=== PATIENT | female | born 1990 | race Caucasian/White ===

== ENCOUNTER → 2017-09-14 14:25 | Outpatient (CLI) | payer MEDICAID, SELFPAY ==
[2017-09-14 17:11] LABS: Chlamydia Trachomatis by PCR Negative (Negative); Neisserai gonorrhoeae by PCR Negative (Negative); Probe Check PASS; Sample Adequacy Control PASS; Specimen Processing Control PASS
== END ==
PROVIDERS: Visit Provider Obstetrics & Gynecology
DX: Z11.3 Encounter for screening for infections with a predominantly sexual mode of transmission (principal); Z32.01 Encounter for pregnancy test, result positive
CPT/HCPCS: 87491; 87591

== ENCOUNTER 2017-09-15 21:11 | Emergency (ER) | payer MEDICAID, SELFPAY ==
[2017-09-15 21:13] VITALS: BP 134/109; PULSE 78; RESP 18; TEMP 36.7; O2SAT 99; BMI 51.7
--- NOTE | 2017-09-15 22:29 | ED.VISSUMM ---
- ER Visit Summary Date of Service: 09/15/17 Chief Complaint: Sore throat History of Present Illness: The patient is a 27 F who has a sore throat that began today. She notes a cough and runny nose. No fevers. She is 6 weeks . Vomiting or diarrhea. No urinary symptoms. No rash. No headache. No neck pain. She does state that she has been of a hoarse voice today. Physical Examination: Afebrile vital signs are stable Gen: Well-nourished well-developed Head: Normocephalic atraumatic Eyes: Perrl EOMI ENT: TMs clear positive rhinorrhea moist mucous membranes I do not see any pharyngeal erythema. There is no tonsillar or retropharyngeal abscess. She seen her secretions normally. No exudate. Neck: Supple slight anterior lymphadenopathy no JVD nontender CVS: Regular rate rhythm no murmurs normal S1-S2 Respiratory: No distress clear to auscultation bilaterally chest nontender Abdomen: Soft nontender nondistended normal bowel sounds no masses Back: Nontender Extremity: Nontender no edema Skin: Normal color no rash Neuro: alert orientated ?3 CN II-XII intact normal strength sensation reflexes gait cerebellar Psych: Normal affect normal mood Emergency Department Course and Treatment: She will do supportive care at home. Return if worsening. Impression: 1. Viral pharyngitis This note was generated with [employer] dictation software. It may contain incorrect words, spelling, and punctuation that were not noted in review of the chart prior to signing ED Disposition - Plan for ED Patient: Disposition: Home or Assisted Living Chief Complaint: Sore Throat Instructions: ED Pharyngitis Viral Referrals: Care Physician,No Primary [Primary Care Provider] - Mae Ballard MD [STAFF PHYSICIAN] - As Needed
[2017-09-15 22:34] VITALS: RESP 18
== END 2017-09-15 22:34 | disposition home or self-care (01) ==
PROVIDERS: Emergency Provider Emergency Medicine
DX: O26.891 Other specified pregnancy related conditions, first trimester (principal); J02.9 Acute pharyngitis, unspecified; Z3A.01 Less than 8 weeks gestation of pregnancy
CPT/HCPCS: 99282

== ENCOUNTER → 2017-09-28 11:22 | Outpatient (CLI) | payer MEDICAID, SELFPAY ==
[2017-09-28 13:50] LABS: Absolute Lymphocyte Count 1.59 X10^3/ul (0.83-4.51); Basophil# 0.03 X10^3/uL; Basophil% 0.4 % (0-1); Color, Urine Yellow (Yellow); Eosinophil# 0.03 X10^3/uL; Eosinophils% 0.4 % (0-5); Glucose, Dipstick Normal (Normal); Hematocrit 34.6 % (37-47); Ketone-Dipstick Negative (Negative); Leukocyte Esterase-Dipstick 25 /ul (Negative); Lymphocyte # 1.59 X10^3/ul (4.0); Lymphocyte % 22.4 % (19-41); Mean Corp Hgb Conc 31.8 g/gl (32-36); Mean Corpuscular Hgb 27.3 pg (27.0-32.0); Mean Corpuscular Volume 85.9 fL (81-99); Mean Platelet Vol. 10.6 fl (6.2-12.0); Monocyte# 0.38 X10^3/uL; Monocyte% 5.4 % (0-10); Neutrophil # 5.04 X10^3/uL (2.7-7.7); Neutrophil % 71.1 % (47-70); Nitrite-Dipstick Negative (Negative); Occult Blood-Urine Negative /ul (Negative); Platelet Count 209 K/mm3 (150-450); Protein-Dipstick Negative (Negative); RBC Distribution Width CV 14.4 % (11.6-14.6); Red Blood Count 4.03 M/mm3 (4.2-5.4); Urine Bilirubin Dipstick Negative (Negative); Urine Clarity Clear (Clear); Urine Urobilinogen Normal (Normal); White Blood Count 7.1 K/mm3 (4.4-11.0)
[2017-09-28 13:51] LABS: COTININE Drug Screen Negative (<200 ng/mL); POSITIVE COUNT NO; POSITIVE DIFFERENTIAL NO; POSITIVE MORPHOLOGY NO
[2017-09-28 13:53] LABS: Amphetamine Urine VISTA NEGATIVE (<1000 ng/mL); Barbiturate Urine VISTA NEGATIVE (< 200 ng/mL); Benzodiazepine Urine VISTA NEGATIVE (< 200 ng/mL); Cocaine Urine VISTA NEGATIVE (< 300 ng/mL); Ecstacy Urine VISTA NEGATIVE (< 500 ng/mL); Methadone Urine VISTA NEGATIVE (< 300 ng/mL); PCP Urine VISTA NEGATIVE (< 25 ng/mL); THC Urine VISTA NEGATIVE (< 50 ng/mL); Vista UDS pH Range 6
[2017-09-28 14:10] LABS: Thyroid Stim Hormone (TSH) 1.85 uIU/mL (0.358-3.74)
[2017-09-29 09:44] LABS: HIV - WCH Non-Reactive (Nonreactive); Rubella IgG 147.7 IU/mL
[2017-09-29 14:34] LABS: HEPATITIS B SURFACE AG Negative (Negative); Hep C Antibodies <0.1 s/co ratio (0.0-0.9)
[2017-10-01 03:15] LABS: Prenatal RPR NONREACTIVE (NONREACTIVE)
== END ==
PROVIDERS: Visit Provider Obstetrics & Gynecology
DX: Z34.81 Encounter for supervision of other normal pregnancy, first trimester (principal)
CPT/HCPCS: 36415; 80307; 81002; 84443; 85025; 86703; 86762; 86803; 87340

== ENCOUNTER 2017-10-27 19:36 | Emergency (ER) | payer MEDICAID, SELFPAY ==
[2017-10-27 19:38] VITALS: BP 134/70; PULSE 85; RESP 16; TEMP 36.9; O2SAT 99; BMI 49.8
--- NOTE | 2017-10-27 20:25 | ED.RN ---
PT STATES THIS IS SIMILAR TO PREVIOUS MIGRAINES. TOK TYLENOL AT HOME. EMESIS X2 SINCE 1800. REPORTS N/T IN HANDS, TREMORS NOTED. BLURRED VISION. DENIES AURA.
[2017-10-27] MEDS: Metoclopramide 10 MG/2 ML Vial IV (21:31)
[2017-10-27] MEDS: DiphenhydrAMINE 50 MG/ML Syringe 25 MG IV (21:31)
[2017-10-27] MEDS: 0.9% Normal Saline 1,000 ML 999 ML IV (21:31)
[2017-10-27 23:04] VITALS: BP 115/42; PULSE 71; RESP 18; O2SAT 100
--- NOTE | 2017-10-27 23:15 | ED.VISSUMM ---
- ER Visit Summary Date of Service: 10/27/17 Chief Complaint: Migraine History of Present Illness: The patient is a 27 F who states that she is about 3 months (). She sees Dr. Alexander. She states for the past 3-1/2 hour she has had a headache. States it felt very sudden onset left frontal. It is to the right side of her body had numbness and tingling and felt weak. She states that she also has blurred vision. Patient has a history of migraines and states that her symptoms are not uncommon for her. She currently is not on any migraine medications. Physical Examination: Afebrile 134/76 Gen: Well-nourished well-developed BMI of 50 Head: Normocephalic atraumatic Eyes: Perrl EOMI ENT: TMs clear no rhinorrhea moist mucous membranes Neck: Supple no lymphadenopathy no JVD nontender CVS: Regular rate rhythm no murmurs normal S1-S2 Respiratory: No distress clear to auscultation bilaterally chest nontender Abdomen: Soft nontender nondistended normal bowel sounds no masses Back: Nontender Extremity: Nontender no edema Skin: Normal color no rash Neuro: alert orientated ?3 CN II-XII intact normal strength sensation reflexes gait cerebellar Psych: Normal affect normal mood Emergency Department Course and Treatment: Patient received IV fluids Benadryl and Reglan. Her symptoms have improved. She will be given a dose of Solu-Medrol. I will write for her to have Reglan at home for home use for her migraines. We talked about her blood pressure. She will continue to monitor it with her doctor. Impression: 1. Migraine headache 2. Second trimester 3. Elevated blood pressure This note was generated with [employer] dictation software. It may contain incorrect words, spelling, and punctuation that were not noted in review of the chart prior to signing ED Disposition - Plan for ED Patient: Disposition: Home or Assisted Living Chief Complaint: Headache Instructions: ED Headache Migraine Prescriptions: Metoclopramide [Reglan] 10 mg PO 4X/DAY PRN #20 tab PRN Reason: Migraine Symptoms Referrals: Matthew Alexander MD [STAFF PHYSICIAN] - As soon as possible
[2017-10-27] MEDS: MethylPREDNISolone 125 MG/2 ML Vial IV (23:28)
== END 2017-10-27 23:34 | disposition home or self-care (01) ==
PROVIDERS: Emergency Provider Emergency Medicine
DX: O26.891 Other specified pregnancy related conditions, first trimester (principal); G43.909 Migraine, unspecified, not intractable, without status migrainosus; R03.0 Elevated blood-pressure reading, without diagnosis of hypertension; Z87.891 Personal history of nicotine dependence; Z3A.00 Weeks of gestation of pregnancy not specified
CPT/HCPCS: 96361; 96374; 96375; 99285; J7030; A4216

== ENCOUNTER → 2018-02-09 13:35 | Outpatient (CLI) | payer MEDICAID, SELFPAY ==
[2018-02-09 16:01] LABS: Hemoglobin 10.7 g/dl (12.0-15.0); Mean Corp Hgb Conc 32.4 g/gl (32-36); Mean Corpuscular Hgb 30.1 pg (27.0-32.0); Mean Corpuscular Volume 92.7 fL (81-99); Platelet Count 252 K/mm3 (150-450); RBC Distribution Width CV 12.6 % (11.6-14.6); RBC Distribution Width SD 43.1 fl (35.1-43.9); Red Blood Count 3.56 M/mm3 (4.2-5.4); Scan Indicated on CBC? Y/N NO; White Blood Count 10.1 K/mm3 (4.4-11.0)
[2018-02-09 16:03] LABS: Glucose Challenge Gest 1H 50g 133 mg/dL (70-140)
== END ==
PROVIDERS: Visit Provider Obstetrics & Gynecology
DX: Z34.82 Encounter for supervision of other normal pregnancy, second trimester (principal)
CPT/HCPCS: 36415; 82950; 85027

== ENCOUNTER 2018-03-23 11:22 | Outpatient (CLI) | payer MEDICAID, SELFPAY ==
[2018-03-23 11:29] VITALS: BMI 49.8
[2018-03-23] MEDS: Betamethasone/Betamethasone 30 MG/5 ML Vial 12 MG IM (11:36)
--- NOTE | 2018-03-26 08:31 | OB.TRI.NOTE ---
History of Present Illness Date of Service: 03/24/18 Was patient seen by the physician?: Yes Reason For Visit: CELESTONE SHOT Date of Service: 03/24/18 Final JACK: 05/05/18 Gestational age: 34 Weeks and 0 Days History of Present Illness: 28 yo female with h/o 37 wk stillbirth. Planned Celestone injections today and tomorrow in preparation for possible delivery Allergies amoxicillin [Amoxicillin] Allergy (Verified 03/23/18 11:40) Hives Impression/Plan 34 wk with h/o 37 wk stillbirth. Planned Celestone injection prior to potential . Dose today and repeat in 24 hrs for two dose Continue office appts, NSTs as planned.
== END 2018-03-23 11:40 | disposition home or self-care (01) ==
LOC: WPOUT 11:24 → WP 11:24
PROVIDERS: Visit Provider Obstetrics & Gynecology
DX: O09.293 Supervision of pregnancy with other poor reproductive or obstetric history, third trimester (principal); Z3A.34 34 weeks gestation of pregnancy
CPT/HCPCS: 96372; 99218; G0378; J0702

== ENCOUNTER 2018-03-24 11:45 | Outpatient (CLI) | payer MEDICAID, SELFPAY ==
[2018-03-24 12:09] VITALS: BMI 49.8
[2018-03-24] MEDS: Betamethasone/Betamethasone 30 MG/5 ML Vial 12 MG IM (12:34)
--- NOTE | 2018-04-04 07:50 | OB.TRI.NOTE ---
History of Present Illness Reason For Visit: CELESTONE SHOT History of Present Illness: presents for second Celestone injection Potential for early delivery Allergies amoxicillin [Amoxicillin] Allergy (Verified 03/23/18 11:40) Hives Impression/Plan 34+ wk for Celestone injection. Potential for delivery.
== END 2018-03-24 12:40 | disposition home or self-care (01) ==
LOC: WPOUT 12:00 → WP 12:01
PROVIDERS: Visit Provider Obstetrics & Gynecology
DX: O09.213 Supervision of pregnancy with history of pre-term labor, third trimester (principal); Z3A.34 34 weeks gestation of pregnancy
CPT/HCPCS: 96372; 99218; G0378; J0702

== ENCOUNTER → 2018-04-06 15:15 | Outpatient (CLI) | payer MEDICAID, SELFPAY ==
[2018-04-06 18:17] LABS: Group B Strep DNA By PCR Negative (Negative); Internal Control PASS; Probe Check PASS; Specimen Processing Control PASS
== END ==
PROVIDERS: Visit Provider Obstetrics & Gynecology
DX: Z36.85 Encounter for antenatal screening for Streptococcus B (principal)
CPT/HCPCS: 87081; 87653

== ENCOUNTER 2018-04-13 07:00 | Inpatient (IN) | payer MEDICAID, SELFPAY ==
[2018-04-13] MEDS: Lactated Ringers 1,000 ML 50 ML IV ×4 (07:40→20:08)
[2018-04-13 07:47] VITALS: BMI 48.1
[2018-04-13 07:53] LABS: Hematocrit 28.8 % (37-47); Hemoglobin 9.5 g/dl (12.0-15.0); Mean Corpuscular Hgb 29.9 pg (27.0-32.0); Mean Corpuscular Volume 90.6 fL (81-99); Mean Platelet Vol. 10.5 fl (6.2-12.0); Platelet Count 203 K/mm3 (150-450); RBC Distribution Width CV 13.3 % (11.6-14.6); RBC Distribution Width SD 43.5 fl (35.1-43.9); Red Blood Count 3.18 M/mm3 (4.2-5.4); Scan Indicated on CBC? Y/N NO; White Blood Count 9.6 K/mm3 (4.4-11.0)
[2018-04-13] MEDS: Oxytocin 30 units/NS 500 ml 30 UNITS/500 ML IV.SOLN IV (08:03)
[2018-04-13] MEDS: fentaNYL-bupivacaine (epidural) 100 ML BAG EPIDURAL ×3 (11:48→21:28)
[2018-04-13] MEDS: Ondansetron 4 MG/2 ML Vial IV (20:20)
[2018-04-14] MEDS: Lactated Ringers 1,000 ML 50 ML IV (00:21)
[2018-04-14] MEDS: Oxytocin 30 units/NS 500 ml 30 UNITS/500 ML IV.SOLN 334 UNITS IV (00:31)
--- NOTE | 2018-04-14 00:46 | PCM.OB.VAG ---
Vaginal Delivery Maternal Presentation: Medically Indicated Induction [id number] ega admitted for induction secondary to history of term demise at 37 weeks in previous . Method of Induction: Pitocin Medical Reason for Induction: - - History or prior term loss Amniotic Membrane Rupture Type: Artificial Rupture of Membrane time: 1100 Amniotic Fluid Description: Clear Final JACK: 05/05/18 Final JACK Source: US <20 weeks Gestational age: 37 Weeks and 0 Days Date of Procedure: 04/14/18 Pre-Operative Diagnosis: labor Post-Operative Diagnosis: labor Surgery/ Procedure Performed: Spontaneous Vaginal Delivery Anesthesiologist: Ata Garcia Type of Anesthesia: Epidural Description of Procedure: Progressed to FD then pushed over two contractions to deliver a live female without complication. The mouth was suctioned at delivery with a bulb suction. The cord was clamped and cut. The placenta was delivered spontaneously intact with a centrally located 3VC. The uterus contracted well. Presentation: Vertex Placental Delivery Description: Spontaneous Placenta Disposition: [facility] Percentage of Placenta Abruption: 0 Cord Vessel Description: 3 Vessels Nuchal Cord Compression: Without compression Cord Entanglement: None Drain: Arevalo to straight drain Estimated Blood Loss: 200cc Infant A gender: Female (1 minute): 8 (5 minute): 9 Episiotomy Description: None Laceration: None Medications given after delivery: IV Pitocin Complications: None
--- NOTE | 2018-04-14 00:52 | DCINST_ITS ---
Discharge Diet: No Restrictions Discharge Activity: Return to Normal Activity, May Drive, May Shower Return to work on:: 06/13/18 May shower in (days): 0 May resume sexual activity in: 4-6 weeks Call your doctor if your incision/area has: Sudden Increased Bleeding, Increased Pain/ Swelling, Foul Smelling Discharge Call your doctor if you observe: Fever of 101 or Higher, Inability to urinate, Inability to have a bowel movement, Using more than one pad per hour, Shortness of breath, Chest pain, Calf discomfort, Uncontrolled pain Cleanse incision/area with: Soap & Water Additional Instructions: If you experience any of the following, contact your healthcare provider. * Bleeding that soaks a pad every hour for 2 hours * Fever 100.4 or higher * Unrelieved incision or abdominal pain * Swelling, redness, discharge or bleeding from your incision or episiotomy site * Your incision begins to separate * Problems urinating (including inability to urinate or burning while urinating). * Visual changes * Severe headache * Flu-like symptoms * Pain or redness in one of both of your breasts * Pain, warmth, tenderness or swelling in your legs, especially the calf area * Frequent nausea and vomiting * Symptoms of depression or anxiety If you experience any of the following, call 911 or go to the nearest Emergency Room. * Chest pain * Problems breathing * Seizure activity * Partial or complete paralysis of a body part, slurred speech, weakness or drooping of the face, or a sudden inability to walk or hold your balance Allergies/Adverse Reactions: Allergies amoxicillin [Amoxicillin] Allergy (Verified 04/13/18 08:21) Hives Medications to take at Discharge Pnv No.122/Iron/Folic Acid [ Multi Tablet] 1 each PO DAILY 09/15/17 Iron 325 mg PO BID 03/23/18 Ibuprofen 600 mg PO Q6H PRN PRN #30 tab 04/14/18 The following prescriptions were given: Ibuprofen 600 mg PO Q6H PRN PRN #30 tab PRN Reason: pain or cramping Please Follow Up With: Matthew Alexander MD When: 6 weeks Primary Care Physician: Care Physician,No Primary [Primary Care Provider] - Test Results: Test results from this visit will be discussed in further detail at your follow- up appointment, if applicable. Proposed Discharge Date: 04/15/18
[2018-04-14] MEDS: Oxytocin 30 units/NS 500 ml 30 UNITS/500 ML IV.SOLN 167 UNITS IV (01:01)
[2018-04-14] MEDS: 0.9% Saline Lock 10 ML Syringe IV (02:00)
[2018-04-14 02:59] VITALS: BP 123/60; PULSE 70; RESP 16; TEMP 36.8; O2SAT 98
[2018-04-14 06:24] VITALS: BP 141/69; PULSE 70; RESP 16; TEMP 36.6; O2SAT 97
[2018-04-14 06:31] LABS: Absolute Lymphocyte Count 1.77 X10^3/ul (0.83-4.51); Absolute Neutrophil Count 8.8 X10^3/uL (2.0-7.7); Basophil# 0.01 X10^3/uL; Basophil% 0.1 % (0-1); Eosinophil# 0.06 X10^3/uL; Eosinophils% 0.5 % (0-5); Hemoglobin 9.7 g/dl (12.0-15.0); Lymphocyte # 1.77 X10^3/ul (4.0); Lymphocyte % 15.7 % (19-41); Mean Corp Hgb Conc 33.4 g/gl (32-36); Mean Corpuscular Hgb 30.7 pg (27.0-32.0); Mean Corpuscular Volume 91.8 fL (81-99); Mean Platelet Vol. 11.2 fl (6.2-12.0); Monocyte# 0.62 X10^3/uL; Monocyte% 5.5 % (0-10); Neutrophil # 8.78 X10^3/uL (2.7-7.7); Neutrophil % 77.8 % (47-70); Platelet Count 182 K/mm3 (150-450); RBC Distribution Width CV 12.9 % (11.6-14.6); Red Blood Count 3.16 M/mm3 (4.2-5.4); White Blood Count 11.3 K/mm3 (4.4-11.0)
[2018-04-14 06:32] LABS: POSITIVE COUNT NO; POSITIVE DIFFERENTIAL NO; POSITIVE MORPHOLOGY NO
--- NOTE | 2018-04-14 07:55 | PCM.PN.OB ---
Subjective: No specific complaints, Bleeding light Objective: Afeb VSS Hgb stable - Physical Exam General: Alert, Oriented x3, Cooperative, No apparent distress Lungs: Clear to auscultation, Normal air movement Cardiovascular: Regular rate, Regular Rhythm Abdomen: Soft, Non Tender, Non-Distended, - - Fundus firm nontender Extremities: No edema Skin: No rashes Neurological: Neuro grossly intact Psych/Mental Status: Normal Affect Comment: Lochia light Vital Signs Temp Pulse Resp BP Pulse Ox 97.9 F 70 16 141/69 H 97 04/14/18 06:24 04/14/18 06:24 04/14/18 06:24 04/14/18 06:24 04/14/18 06:24 Oxygen Delivery Method Room Air Weight: 298 lb Body Mass Index (BMI) 48.1 Intake and Output for Last 24 Hours 04/12/18 04/13/18 04/14/18 23:59 23:59 23:59 Intake Total 2654 / 2654 2936 / 2936 Output Total 1000 / 1000 1600 / 1600 Balance 1654 / 1654 1336 / 1336 Laboratory Tests Past 24 Hrs 04/13/18 04/14/18 07:40 06:15 WBC 11.3 H RBC 3.16 L Hgb 9.7 L Hct 29.0 L MCV 91.8 MCH 30.7 MCHC 33.4 RDW 12.9 RDW Differential 42.0 Plt Count 182 MPV 11.2 Immature Gran % (Auto) 0.400 Neut % (Auto) 77.8 H Lymph % (Auto) 15.7 L Gregory % (Auto) 5.5 Eos % (Auto) 0.5 Baso % (Auto) 0.1 Absolute Neuts (auto) 8.8 H Absolute Lymphs (auto) 1.77 Total Counted Not Reportable Blood Type O POSITIVE Antibody Screen NEGATIVE Medical Necessity - Tobacco Use Smoking Status: Never smoker Assessment/Plan All Active Problems BMI 45.0-49.9, adult (Acute) Preeclampsia (Acute) demise > 22 weeks, delivered, current hospitalization (Acute) Doing well on PP day#1. Continue routine PP care. Bottle feeding.
[2018-04-14] MEDS: Ferrous Sulfate 325 MG Tablet PO ×2 (08:58→17:40)
[2018-04-14 09:00] VITALS: BP 132/63; PULSE 75; RESP 16; TEMP 36.6; O2SAT 98
[2018-04-14] MEDS: Citalopram 20 MG Tablet PO (10:29)
[2018-04-14] MEDS: Acetaminophen 500 MG Tablet 1000 MG PO (11:33)
[2018-04-14 11:38] VITALS: BP 144/62; PULSE 67; RESP 14; TEMP 36.6
[2018-04-14] MEDS: Prenatal Vits Tablet 1 TABLET PO (12:37)
[2018-04-14 16:00] VITALS: BP 137/64; PULSE 64; RESP 16; TEMP 36.6; O2SAT 97
[2018-04-14 20:50] VITALS: BP 122/60; PULSE 89; RESP 16; TEMP 36.7; O2SAT 97
[2018-04-15 00:40] VITALS: BP 129/78; PULSE 82; RESP 16; TEMP 36.5; O2SAT 98
[2018-04-15 05:31] VITALS: BP 128/69; PULSE 85; RESP 18; TEMP 36.8; O2SAT 98
--- NOTE | 2018-04-15 07:23 | PCM.PN.OB ---
Subjective: PPD#1 Vaginal delivery Bottle feeding. Minimal pain/cramping. Mentions possible dischg today if baby is released. - Physical Exam General: Alert, Oriented x3, Cooperative, No apparent distress HEENT: Atraumatic Neck: Supple Abdomen: Soft - Fundus firm NT inferior to umbilicus Neurological: Cranial nerves II-XII grossly intact Psych/Mental Status: Normal Affect Vital Signs Temp Pulse Resp BP Pulse Ox 98.3 F 85 18 128/69 H 98 04/15/18 05:31 04/15/18 05:31 04/15/18 05:31 04/15/18 05:31 04/15/18 05:31 Oxygen Delivery Method Room Air Weight: 135.171 kg Body Mass Index (BMI) 48.1 Intake and Output for Last 24 Hours 04/13/18 04/14/18 04/15/18 23:59 23:59 23:59 Intake Total 2654 / 2654 2936 / 2936 Output Total 1000 / 1000 2550 / 2550 Balance 1654 / 1654 386 / 386 Medical Necessity - Tobacco Use Smoking Status: Never smoker Assessment/Plan All Active Problems BMI 45.0-49.9, adult (Acute) Preeclampsia (Acute) demise > 22 weeks, delivered, current hospitalization (Acute) PPD#1 vaginal delivery Stable pp. OK to dischg today if baby is released.
[2018-04-15 08:34] VITALS: BP 121/88; PULSE 64; RESP 16; TEMP 36.4; O2SAT 98
[2018-04-15] MEDS: Ferrous Sulfate 325 MG Tablet PO (08:38)
[2018-04-15] MEDS: Prenatal Vits Tablet 1 TABLET PO (08:38)
[2018-04-15] MEDS: Citalopram 20 MG Tablet PO (08:38)
[2018-04-15 14:00] VITALS: BP 122/62; PULSE 78; RESP 16; TEMP 37.1; O2SAT 96
--- NOTE | 2018-04-15 14:25 | CASEMGMT ---
Addendum entered and electronically signed by Myranda Ferrer 04/27/18 09:23: Error in documentation below, assessment occurred on 04.14.18 rather than 04.15.18. Radha Original Note: Social Work Brief Assessment - Labor and Delivery Unit Refer documentation below for further details. Date of Referral/Notification: 04.14.2018 Time of Referral: 030 Referred By: Dr. Holbrook Reason for Referral: maternal history of Date of Intervention: 04.15.18 Time of Intervention: 1424 Informant: Medical record and mother of baby (MOB) Liliane Andrea; FOB present and participating during conversation. History: MOB is 28-year-old female, to 4 after delivery of girl [place]. DELMA now has 3 living children and one son, Gama, via stillbirth at 37 weeks gestation in February 2017. Children for MOB include: Olimpia (born 04.14.18) and twins Chanelle and Kike (born 04.28.12). Father of baby (FOB) and to all the children is Conor Salmonalexis. MOB reports history of depression, anxiety, and grief after the of Gama. MOB has history of treatment with Celexa and reports restarted this during the . MOB reports that medicine is helpful, as is talking to synagogue and . MOB reports that did have some thoughts of suicide, no intent, but was feeling hopeless at the time after loss of son. MOB reports talked to FOB, got on medicine and this seemed to help a lot. FOB reports history some counseling himself and knows that people have various emotions and need support. MOB denies any substance use issues, reported tried marijuana in high school and drinks alcohol on occasion but not during . NO reported history of other illicit drug use. MOB reports to have food and medical with [employer] and to have WIC. FOB is employed, MOB is not sure that will return to work now that has another baby. Assessment: MOB and FOB both engaging in conversation with this job specification writer, both talking about the loss of Gama and how hard this was for them. MOB and FOB both report to be happy about [place] and to feel a connection to this child. Discussed risk for depression, importance of self-care and some resources locally to give parent support. Educated to some online supports as well. MOB denies any thoughts of suicide currently or during this . MOB reports to feel happy and seems to be future oriented about caring for children. MOB and FOB both accepting of informant on local grief support group for parents with a loss, as well as online support group for moms and dads. MOB reporting to have adequate help at homegoing from family and to have needed supplies ot care for baby. Plan: MOB and baby to discharge home with resources in place. Has WIC and S support Grief support group information given depression packet provided as well as [facility] resources list. Provided list of counseling agencies in case MOB chooses to seek some extra support in the future. No further needs requested or indicated. -RASTA Sanchez, MULTI SITE LEASING CONSULTANT
[2018-04-15 20:19] VITALS: BP 128/72; PULSE 76; RESP 16; TEMP 36.8; O2SAT 97
[2018-04-16] MEDS: Ibuprofen 600 MG Tablet PO (01:08)
[2018-04-16 02:20] VITALS: BP 119/62; PULSE 63; RESP 16; TEMP 36.2; O2SAT 95
[2018-04-16 07:40] VITALS: BP 141/73; PULSE 62; RESP 16; TEMP 36.6; O2SAT 98
[2018-04-16] MEDS: Ferrous Sulfate 325 MG Tablet PO (07:44)
[2018-04-16] MEDS: Prenatal Vits Tablet 1 TABLET PO (07:44)
[2018-04-16] MEDS: Citalopram 20 MG Tablet PO (07:44)
--- NOTE | 2018-04-16 09:23 | PCM.PN.OB ---
Subjective: PPD#2 VAGINAL DELIVERY Doing well. Rested well overnight. Baby had to stay for bili lights and is stable for dischg today. no concerns voiced. - Physical Exam General: Alert, Oriented x3, Cooperative, No apparent distress HEENT: Atraumatic Neck: Supple Psych/Mental Status: Normal Affect Vital Signs Temp Pulse Resp BP Pulse Ox 97.9 F 62 16 141/73 H 98 04/16/18 07:40 04/16/18 07:40 04/16/18 07:40 04/16/18 07:40 04/16/18 07:40 Oxygen Delivery Method Room Air Weight: 135.171 kg Body Mass Index (BMI) 48.1 Intake and Output for Last 24 Hours 04/14/18 04/15/18 04/16/18 23:59 23:59 23:59 Intake Total 2936 / 2936 Output Total 2550 / 2550 Balance 386 / 386 Medical Necessity - Tobacco Use Smoking Status: Never smoker Assessment/Plan All Active Problems BMI 45.0-49.9, adult (Acute) Preeclampsia (Acute) demise > 22 weeks, delivered, current hospitalization (Acute) PPD#2 vaginal delivery Stable pp. Dischg today RTO as scheduled for pp check.
== END 2018-04-16 09:45 | disposition home or self-care (01) | DRG 560 ==
PROVIDERS: Admitting Provider Obstetrics & Gynecology; Referring Provider Obstetrics & Gynecology; Visit Provider Obstetrics & Gynecology
DX: O60.14X0 Preterm labor third trimester with preterm delivery third trimester, not applicable or unspecified (principal); Z3A.37 37 weeks gestation of pregnancy; Z37.0 Single live birth
CPT/HCPCS: 59025; 59050; 85025; 85027; 86850; 86900; 99218; J7120; 90686; A4216; G0378; J2405

== ENCOUNTER 2018-06-09 10:17 | Emergency (ER) | payer MEDICAID, SELFPAY ==
[2018-06-09 10:18] VITALS: BP 135/77; PULSE 113; RESP 20; TEMP 36.6; O2SAT 96; BMI 47.2
[2018-06-09 10:40] VITALS: PULSE 106; RESP 20; O2SAT 95
[2018-06-09] MEDS: Ondansetron ODT 4 MG Tablet PO (10:42)
[2018-06-09] MEDS: Ipratropium/Albuterol Sulfate 3 ML AMPUL.NEB INHALATION (10:42)
--- NOTE | 2018-06-09 11:00 | RAD_ITS ---
STUDY: X-RAY CHEST REASON FOR EXAM: Female, 28 years old. Cough and fever. TECHNIQUE: PA and lateral views of the chest. COMPARISON: None. FINDINGS: The lungs are clear and expanded. There is no demonstrated pleural abnormality. Normal size heart. Normal mediastinum and nikki. Normal visualized pulmonary arteries. Normal visualized aortic arch and descending thoracic aorta. Normal visualized thoracic spine. Normal visualized ribs, clavicles, and shoulders. There is no demonstrated abnormality of the visualized soft tissue structures of the upper abdomen. RAD/Chest PA and Lateral IMPRESSION: Normal x-ray examination of the chest. Electronically Signed: Prasanna Chacon MD at 11:49 EST Tel [phone], Service support ,
--- NOTE | 2018-06-09 11:31 | ED.DCSUM_ITS ---
- ER Visit Summary Date of Service: 06/09/18 Chief Complaint: Cough, fever, dizziness History of Present Illness: The patient is a 28 F presents to the emergency department with upper respiratory complaints. Patient states 3 days ago, she developed a mild headache and felt a sensation of fluid in her ears. Shortly thereafter, she had a sore throat and a mild cough. She was describing no productive sputum. She states that she had a few bouts of posttussive emesis after coughing. She has had fevers as high as a 102.8. She did get a flu shot this year. She has no history of immunosuppression. She has not really taken anything for the pain. She denies any prior medical history. Physical Examination: Vital signs reviewed General: Well-nourished, well-developed Head: Normocephalic, atraumatic Eyes: Pupils equal and reactive, extraocular muscles intact ENT: Posterior oropharynx is widely patent. TMs are bulging with fluid, but there is no distortion of landmarks or significant erythema. Neck, supple, no lymphadenopathy Heart: Regular rate and rhythm Respiratory: No distress, scant wheeze throughout Abdomen: Soft, nontender, nondistended, no peritoneal signs Back: Nontender Extremities: Nontender, no edema, no cords Skin: Normal color no rash Neuro: Alert and oriented, no focal or lateralizing deficits Test Results: [] Emergency Department Course and Treatment: The patient's symptoms do seem infe ctious in nature. She has fluid in both TMs but no significant distortion of landmarks. Oropharynx is patent. She did have some scant wheezing in her lung espino. Rapid flu was obtained was negative. Patient was given a nebulized breathing treatment improvement of aeration. Her chest x-ray does not show focal infiltrate. My suspicion is that she may be developing an atypical pneumonia. I am going to cover the patient with azithromycin, inhaler, and prednisone. She was counseled on concerning symptoms and reasons to return. She will be discharged home. Treatment Plan: [] Disposition: Discharge Impression: 1. Atypical pneumonia This note was generated with [employer] dictation software. It may contain incorrect words, spelling, and punctuation that were not noted in review of the chart prior to signing ED Disposition - Plan for ED Patient: Chief Complaint: Cough Instructions: ED Upper Resp Infec Abx Tx Prescriptions: Albuterol Inhaler [Ventolin Hfa] 2 puff INHALATION Q4H PRN PRN #1 inhaler PRN Reason: Wheezing Azithromycin [Zithromax Z-Terrence] 250 mg PO UD #1 box predniSONE tablet 60 mg PO DAILY #15 tab Referrals: Care Physician,No Primary [Primary Care Provider] -
[2018-06-09 12:22] VITALS: PULSE 107; RESP 18; O2SAT 99
== END 2018-06-09 12:22 | disposition home or self-care (01) ==
LOC: ED 10:51
PROVIDERS: Emergency Provider Emergency Medicine
DX: J18.9 Pneumonia, unspecified organism (principal)
CPT/HCPCS: 71046; 87804; 94640; 99283

== ENCOUNTER 2018-07-13 06:28 | Day surgery (SDC) | payer MEDICAID, SELFPAY ==
[2018-07-08 10:24] LABS: Hematocrit 34.4 % (37-47); Hemoglobin 10.9 g/dl (12.0-15.0); Mean Corp Hgb Conc 31.7 g/gl (32-36); Mean Corpuscular Hgb 27.5 pg (27.0-32.0); Mean Corpuscular Volume 86.9 fL (81-99); Mean Platelet Vol. 9.6 fl (6.2-12.0); Platelet Count 222 K/mm3 (150-450); RBC Distribution Width CV 13.9 % (11.6-14.6); RBC Distribution Width SD 44.1 fl (35.1-43.9); Red Blood Count 3.96 M/mm3 (4.2-5.4); White Blood Count 5.4 K/mm3 (4.4-11.0)
[2018-07-08 10:25] LABS: Scan Indicated on CBC? Y/N NO
[2018-07-08 10:32] LABS: Prothrombin Time (Protime)PT. 13.3 SECONDS (11.7-14.9)
[2018-07-08 10:33] LABS: Partial Thromboplast Time 31.6 Seconds (24.1-36.2)
[2018-07-08 10:49] LABS: Pregnancy, Serum, hCG Quali. NEGATIVE Negative (0-9 Nonpreg)
[2018-07-13] VITALS (7 sets, daily range): BP systolic 110–138; BP diastolic 51–77; PULSE 60–82; RESP 16–18; TEMP 36.2–36.8; O2SAT 90–99; BMI 51.0
--- NOTE | 2018-07-13 | FALS_PTH ---
PATIENT: JOSE DOW LOC: [facility] – [place] U#:[id number] AGE/SX: 28/F ROOM: RE07/13/[address]: Dr. Matthew Alexander MD : [id number] BED: DIS: 07/13/2018 SPEC #: [id number] RECD: 07/13/18 15:05 STATUS: ALBAN ORI #: [id number] REANNA: 07/13/18 00:[address]: Matthew Alexander DEPT: SURGICAL PATHOLOGY RECD BY: Bucky Berry ENTERED: 07/13/18 15:05 SP TYPE: FALL TUBES OTHR DR: No Primary Care Phys Tissues: Fallopian tube Procedures: Surgery Specimen Level II HEADER OPERATION: Laparoscopic salpingectomy PRE-OP DIAGNOSIS: Desired sterilization TISSUE SUBMITTED: Bilateral fallopian tubes MICROSCOPIC DIAGNOSIS Bilateral fallopian tubes, salpingectomy: Bilateral fallopian tubes including fimbrial ends, no pathologic diagnosis. SJ:shon 07/14/18 MICROSCOPIC DESCRIPTION Slides are reviewed. GROSS DESCRIPTION Received is one container labeled with the patient's name and designated bilateral fallopian tubes. The specimen consists of bilateral fallopian tubes including fimbrial ends. One of the fallopian tubes measures 6 cm in length and 0.5 cm in diameter. Sections reveal unremarkable cut surfaces. The second fallopian tube is received in three pieces and measures in aggregate 5.5 cm in length and 0.6 cm in diameter. Sections reveal unremarkable cut surfaces. Dietary Aide Teacher sections are submitted in two cassettes as follows: 1 - intact fallopian tube, 2 - second fallopian tube received in multiple pieces. / JOHANNE:shon 07/13/18 TC: 4 CPT: 02474 x2
[2018-07-13 07:01] LABS: Internal QC Validated? YES +Cl - CLEAR BKGD; Pregnancy, Urine Negative Negative
--- NOTE | 2018-07-13 08:09 | DCINST_ITS ---
You will use the following diet at home:: No restrictions Discharge Activity: Return to Normal Activity, May Drive, May not drive while t aking narcotic pain medications., May Shower Return to work on:: 07/18/18 May resume sexual activity in: 1-2 weeks Call your doctor if your incision/area has: Sudden Increased Bleeding, Increased Pain/ Swelling, Increased Redness, Foul Smelling Discharge, Swelling at the incision site Call your doctor if you observe: Fever of 101 or Higher, Inability to urinate, Inability to have a bowel movement, Using more than one pad per hour, Shortness of breath, Chest pain, Calf discomfort, Uncontrolled pain Remove Dressing in (days):: 2 Cleanse incision/area with: Soap & Water Allergies/Adverse Reactions: Allergies amoxicillin [Amoxicillin] Allergy (Verified 07/06/18 10:59) Hives Medications to take at Discharge Ibuprofen 600 mg PO 4X/DAY #30 tab 07/13/18 The following prescriptions were given: Ibuprofen 600 mg PO 4X/DAY #30 tab Primary Care Physician: Care Physician,No Primary [Primary Care Provider] - Test Results: Test results from this visit will be discussed in further detail at your follow- up appointment, if applicable. Please Follow Up With: Matthew Alexander MD When: one week Proposed Discharge Date: 07/13/18
[2018-07-13] MEDS: Bupivacaine 0.25% 30 ML Vial (08:30)
--- NOTE | 2018-07-13 09:53 | PCM.OPRPT ---
Report of Operation Date of Procedure: 07/13/18 Pre-Operative Diagnosis: Requests Permanent Sterilization Post-Operative Diagnosis: Same Surgery/Procedure Performed:: Laparoscopic Bilateral Salpingectomy Description of Surgical Findings:: Normal appearing uterus, ovaries, and fallopian tubes. No significant intraabdominal scarring. Normal appearing liver. wireless sales manager: Hu Han Type of Anesthesia:: General Anesthesiologist: Patrick Baig Special Medications: none Specimen's removed: Right and Left Fallopian Tubes Drains: none Estimated Blood Loss (mL): minimal Fluids Replaced: 500cc LR Description of Procedure: Annamarie was taken to the OR with IV running. She was given IV clindamycin for surgical prophylaxis. SCDs were in place throughout the case. General anesthesia was introduced without complication. She was prepped and draped in the dorsal lithotomy position. The bladder was drained with a red rubber catheter. An acorn style uterine manipulator was then placed. Attention was directed to the abdomen. A 5mm vertical incision was made in the lower base of the umbilicus. A Smita clamp was then used to bluntly dissect the subcutaneous tissue down to the level of the fascia. The abdominal wall was then elevated and a Veress needle placed through the umbilical defect into the abdominal cavity. The abdomen was then inflated with CO2 gas to a pressure of 15 Torr. The Veress needle was replaced with a 5mm trocar and sleeve. The trocar was removed and replaced with the laparoscope. A second 5 mm trocar was placed lateral to the inferior epigastric vessels about 5 cm below the level of the umbilicus. A third 5mm trocar was placed in the midline alf between the umbilicus and the symphysis pubis. The Ligasure was then used to dissect the right fallopian tube from the fimbriated end to the the cornua of the uterus. The tube was then amputated at the cornua. The tube was removed through the midline laparoscopic port. The left fallopian tube was dissected in a similar fashion. Hemostasis was assured. The laparoscopic ports were then removed. The skin incisions were closed with 4-0 Monocryl. The skin was injected with 0.25% Marcaine. The uterine manipulator was removed. Sponge, needle, and instrument counts were correct. She was reversed from anesthesia and taken to the recovery room in stable condition. Grafts/Implants Used: none - Complications none - Admit VTE Documentation VTE Present on Admission: No VTE Mechan Device Prophylaxis: SCD's VTE Pharm Prophylaxis ordered?: No
--- NOTE | 2018-07-13 09:56 | OP.PCM_ITS ---
Report of Operation Date of Procedure: 07/13/18 Pre-Operative Diagnosis: Requests Permanent Sterilization Post-Operative Diagnosis: Same Surgery/Procedure Performed:: Laparoscopic Bilateral Salpingectomy Description of Surgical Findings:: Normal appearing uterus, ovaries, and fallopian tubes. No significant intraabdominal scarring. Normal appearing liver. core loader: Hu Han Type of Anesthesia:: General Anesthesiologist: Patrick Baig Special Medications: none Specimen's removed: Right and Left Fallopian Tubes Drains: none Estimated Blood Loss (mL): minimal Fluids Replaced: 500cc LR Description of Procedure: Annamarie was taken to the OR with IV running. She was given IV clindamycin for surgical prophylaxis. SCDs were in place throughout the case. General anesthesia was introduced without complication. She was prepped and draped in the dorsal lithotomy position. The bladder was drained with a red rubber catheter. An acorn style uterine manipulator was then placed. Attention was directed to the abdomen. A 5mm vertical incision was made in the lower base of the umbilicus. A Smita clamp was then used to bluntly dissect the subcutaneous tissue down to the level of the fascia. The abdominal wall was then elevated and a Veress needle placed through the umbilical defect into the abdominal cavity. The abdomen was then inflated with CO2 gas to a pressure of 15 Torr. The Veress needle was replaced with a 5mm trocar and sleeve. The trocar was removed and replaced with the laparoscope. A second 5 mm trocar was placed lateral to the inferior epigastric vessels about 5 cm below the level of the umbilicus. A third 5mm trocar was placed in the midline fpc between the umbilicus and the symphysis pubis. The Ligasure was then used to dissect the right fallopian tube from the fimbriated end to the the cornua of the uterus. The tube was then amputated at the cornua. The tube was removed through the midline laparoscopic port. The left fallopian tube was dissected in a similar fashion. Hemostasis was assured. The laparoscopic ports were then removed. The skin incisions were closed with 4-0 Monocryl. The skin was injected with 0.25% Marcaine. The uterine manipulator was removed. Sponge, needle, and instrument counts were correct. She was reversed from anesthesia and taken to the recovery room in stable condition. Grafts/Implants Used: none - Complications none - Admit VTE Documentation VTE Present on Admission: No VTE Mechan Device Prophylaxis: SCD's VTE Pharm Prophylaxis ordered?: No
[2018-07-13] MEDS: oxyCODONE 5 MG Tablet 10 MG PO (10:14)
== END 2018-07-13 11:39 | disposition home or self-care (01) ==
LOC: SDC 06:28 → AC 06:29
PROVIDERS: Referring Provider Obstetrics & Gynecology; Visit Provider Obstetrics & Gynecology
PROC: (CPT 58661; principal; 2018-07-13 07:45)
DX: Z30.2 Encounter for sterilization (principal); D64.9 Anemia, unspecified; F32.9 Major depressive disorder, single episode, unspecified; Z87.891 Personal history of nicotine dependence
CPT/HCPCS: 58661; 36415; 81025; 84703; 85027; 85610; 85730; 86850; 86900; 88302; J7120; J2405

== ENCOUNTER → 2018-09-15 15:59 | Outpatient (CLI) | payer MEDICAID, SELFPAY ==
[2018-07-13 06:47] VITALS: BMI 51.0
[2018-09-21 11:22] LABS: HPV HC, High Risk Negative (Negative)
== END ==
PROVIDERS: Visit Provider Obstetrics & Gynecology
DX: Z12.4 Encounter for screening for malignant neoplasm of cervix (principal)
CPT/HCPCS: 87624; 88175; G0145

== ENCOUNTER 2021-02-04 22:03 | Emergency (ER) | payer MEDICAID, SELFPAY ==
[2018-07-13 06:47] VITALS: BMI 51.0
[2021-02-04 22:04] VITALS: BP 151/93; PULSE 93; RESP 18; TEMP 36.3; O2SAT 100; BMI 54.5
--- NOTE | 2021-02-04 22:13 | ED.VIS.LOWEX ---
HPI History of Present Illness Chief Complaint: Lower Extremity Injury Informant: patient and family Onset/Context/Timing Onset: Weeks (1 week) Context: Gradual Onset Timing: Waxes and wanes Current Severity: Moderate Maximum Severity: Moderate Narrative Narrative: Patient presents with a 1 week history of left foot pain. No specific injury. She did report he broke this foot as a child. No surgery was required. She will have flareups of pain occasionally. She reports increased pain for the past 1 week. She does tend to walk on the outside of her foot. She denies pain at the ankle or knee. [facility] Medical History (Updated 02/04/21 @ 22:[address] Ashley Nogueira MD) Migraine Home Medications naproxen [Naprosyn] 500 mg PO BID PRN #20 tab 02/04/21 [Rx Last Taken Unknown] Allergy/AdvReac Type Severity Reaction Status Date / Time amoxicillin [Amoxicillin] Allergy Hives Verified 07/06/18 10:59 Surgical History (Updated 02/04/21 @ 22:14 by Ria Norman) History of cholecystectomy Social History Smoking Status: Current some day smoker tobacco type: cigarettes ROS ROS ED Constitutional Constitutional ED: Denies chills or fever(s) Eyes Eyes: Denies change in vision ENT ENT ED: Denies sore throat Cardiovascular Cardiovascular: Denies chest pain Respiratory/Chest Respiratory/Chest: Denies cough or dyspnea Gastrointestinal Gastrointestinal: Denies abdominal pain, diarrhea, nausea or vomiting Genitourinary Genitourinary ED: Denies dysuria Musculoskeletal Musculoskeletal: Reports arthralgias; Denies back pain Integumentary Denies rash Neurologic Neurologic: Denies headache(s), paresthesias or weakness Allergic/Immunologic Allergic/Immunologic ED: Denies urticaria EXAM Physical Exam Const Vital Signs: 02/04/21 22:04 Temperature 97.3 F L Temperature Source Temporal Pulse Rate 93 Respiratory Rate 18 Blood Pressure 151/93 H Blood Pressure Mean 112 Pulse Ox 100 Oxygen Delivery Method Room Air Positive well nourished and well developed General Appearance ED: well developed HEENT Reports normocephalic and head/scalp atraumatic Eyes PERRL and EOMs intact bilaterally Neck supple Chest Wall inspection of chest normal and palpation of chest normal Resp normal respiratory effort and clear to auscultation bilaterally Cardio regular rate and regular rhythm GI normal to inspection, nondistended, normoactive bowel sounds Palpation: soft Extremity normal to inspection Extremity Narrative: Tenderness location of the proximal midfoot of the left foot. No significant edema. No overlying skin change. Strong pulses and can wiggle toes. No tenderness at the ankle or knee. Neuro oriented x3 and no sensory deficits noted Sensorium / Orientation: alert Motor Exam: strength 5/5 throughout Psych mental status grossly normal Skin no rashes or lesions noted MDM MDM MDM Narrative Medical decision making narrative: Left foot x-rays were obtained. Treatment and Re-Evaluation Comments:: Per my interpretation minimal arthritic change noted. No acute fracture. Patient is placed in an Ovi wrap. She will be given prescription for naproxen and referred to podiatry for follow-up. Discharge Plan Triage Chief Complaint: Lower Extremity Injury ED Provider: Ashley Nogueira Dx/Rx/DC Orders Clinical Impression: Sprain of foot, left Instructions: ED Foot Sprain Prescriptions: New naproxen [Naprosyn] 500 mg tablet 500 mg PO BID PRN (Reason: pain) Qty: 20 RF: 0 Discontinued ibuprofen 600 MG tablet 600 mg PO 4X/DAY Qty: 30 RF: 1 Primary Care Provider: Care Physician,No Primary Referrals: Angelito Ceron DPM [STAFF PHYSICIAN] - As soon as possible Care Physician,No Primary [Primary Care Provider] - Disposition Disposition: Home, Self Care
--- NOTE | 2021-02-04 22:18 | RAD_ITS ---
STUDY: X-RAY - LEFT FOOT CLINICAL: Female, 30 years old. pain TECHNIQUE: 3 view(s) of the foot. COMPARISON: None. FINDINGS: Normal talus, calcaneus, and tarsal bones. Normal visualized subtalar, talonavicular, calcaneocuboid, tarsal and tarsometatarsal articulations. Normal metatarsi. Normal metatarsophalangeal joint of the great toe. Normal tibial and fibular sesamoid bones. Normal interphalangeal joint of the great toe. Normal phalanges of the great toe. Normal second through fifth metatarsophalangeal joints. Normal interphalangeal joints and phalanges of the lesser toes. The soft tissue structures are unremarkable. RAD/Foot min 3 Views IMPRESSION: Normal x-ray examination of the foot. Electronically Signed: Montrell Man DO at 22:33 EDT Tel , Service support ,
[2021-02-04] MEDS: Naproxen 500 MG Tablet PO (22:46)
== END 2021-02-04 22:47 | disposition home or self-care (01) ==
LOC: ED 22:38
PROVIDERS: Emergency Provider Emergency Medicine
DX: S93.602A Unspecified sprain of left foot, initial encounter (principal); F17.210 Nicotine dependence, cigarettes, uncomplicated; Z79.1 Long term (current) use of non-steroidal anti-inflammatories (NSAID); Z90.49 Acquired absence of other specified parts of digestive tract; W45.8XXA Other foreign body or object entering through skin, initial encounter; Y93.9 Activity, unspecified; Y92.89 Other specified places as the place of occurrence of the external cause; Y99.9 Unspecified external cause status
CPT/HCPCS: 73630; 99283